=== PATIENT | male | born 1955 | race Caucasian/White ===

== ENCOUNTER 2016-12-20 10:35 | Emergency (ER) | payer MEDICARE, MEDICAID ==
[~2016-12-20] VITALS: Ht 182.9 cm; Wt 88.6 kg
[2016-12-20] MEDS ORDERED: KETOROLAC 30 MG/1 ML IM ONE (11:00)
[2016-12-20] MEDS ORDERED: DIAZEPAM 5 MG TABLET PO ONE (11:00)
[2016-12-20] MEDS ORDERED: HYDROmorphone 1 MG/ML, 1ML IM ONE (11:00)
[2016-12-20 12:01] VITALS: BP 131/80
== END 2016-12-20 12:25 | disposition home or self-care (01) ==
LOC: ED 12:19
DX: S33.5XXA Sprain of ligaments of lumbar spine, initial encounter (principal); S39.012A Strain of muscle, fascia and tendon of lower back, initial encounter; M47.896 Other spondylosis, lumbar region; M54.32 Sciatica, left side; X58.XXXA Exposure to other specified factors, initial encounter; Y93.89 Activity, other specified; Y92.89 Other specified places as the place of occurrence of the external cause; Y99.8 Other external cause status
CPT/HCPCS: 72110; 96372; 99284; J1170; J1885

== ENCOUNTER 2018-12-22 17:10 | Emergency (ER) | payer MEDICARE, MEDICAID ==
[~2018-12-22] VITALS: Ht 182.9 cm; Wt 92.9 kg
[2018-12-22] MEDS ORDERED: DICY10CA3 PO (17:51)
[2018-12-22] MEDS ORDERED: COLE500G2 MT (17:52)
[2018-12-22] MEDS ORDERED: DOXE25CA PO (17:52)
[2018-12-22] MEDS ORDERED: ALBUTEROL SULFATE 2.5 MG/3 ML NPPB ONE (18:00)
[2018-12-22] MEDS ORDERED: ALBUTEROL SULFATE 2.5 MG/3 ML ONE (18:03)
--- NOTE | 2018-12-22 18:05 | NUR ---
THIS IS A 63 YEAR OLD MALE WHO C/O OF SOB X 3 DAYS. TIMBER BUCKER PLACED, SPO2 AND CYCLE VS.
[2018-12-22 18:31] LABS: ALANINE AMINOTRANSFERASE 44 U/L (12-78); ALBUMIN 3.7 g/dL (3.4-5.0); ANION GAP 7 mmol/L (5-15); CALCIUM 8.5 mg/dL (8.5-10.1); CHLORIDE 111 mmol/L (98-107); CREATININE 1.21 mg/dL (0.7-1.3)
[2018-12-22 18:36] LABS: ALKALINE PHOSPHATASE 149 U/L (45-117); BILIRUBIN,TOTAL 0.4 mg/dL (0.2-1.0); TOTAL PROTEIN 7.7 g/dL (6.4-8.2); TROPONIN I < 0.015 ng/mL (0.000-0.045)
--- NOTE | 2018-12-22 18:53 | NUR ---
REPORT TO ALLIE CURIEL, PLAN OF CARE DISCUSSED
[2018-12-22 19:04] LABS: BASOPHILS # (AUTO) 0.06 x10^3/uL (0-0.1); BASOPHILS % (AUTO) 1 % (0-1); EOSINOPHILS # (AUTO) 0.32 x10^3/uL (0-0.4); EOSINOPHILS % (AUTO) 4 % (1-7); LYMPHOCYTES # (AUTO) 1.59 x10^3/uL (1-3.4); LYMPHOCYTES % (AUTO) 18 % (22-44); MD NO; MEAN CORPUSCULAR HEMOGLOBIN 29.8 pg (27.5-34.5); MEAN CORPUSCULAR HGB CONC 34.3 g/dL (33.2-36.2); MEAN PLATELET VOLUME 9.1 fL (7.4-10.4); MONOCYTES # (AUTO) 1.28 x10^3/uL (0.2-0.8); MONOCYTES % (AUTO) 14 % (2-9); NEUTROPHILS % (AUTO) 64 % (42-75); PLATELET COUNT 172 x10^3/uL (130-400); RED BLOOD COUNT 5.56 x10^6/uL (4.38-5.82); RED CELL DISTRIBUTION WIDTH 14.4 % (9.4-14.8)
--- NOTE | 2018-12-22 19:04 | NUR ---
RECEIVED REPORT FROM VEENA SMALLWOOD TO ASSUME PT. CARE. PT. PROVIDED WITH WATER PER REQUEST. ALL MONITORS ARE IN PLACE. VS UPDATED. SOME LABS STILL PENDING. CHELY.
--- NOTE | 2018-12-22 19:33 | NUR ---
DR. BURRIS IN TO DISCUSS POC WITH PT.
[2018-12-22] MEDS ORDERED: MAALOX/HYOSCYAMINE/LIDOCAINE 45 ML BTL ONE (19:53)
[2018-12-22] MEDS ORDERED: HYDROcodone/APAP 5/325 TABLET ONE (19:53)
[2018-12-22 19:55] VITALS: BP 136/81
[2018-12-22] MEDS ORDERED: MAALOX/HYOSCYAMINE/LIDOCAINE 45 ML BTL PO ONE (20:00)
[2018-12-22] MEDS ORDERED: HYDROcodone/APAP 5/325 TABLET PO ONE (20:00)
== END 2018-12-22 20:02 | disposition home or self-care (01) ==
LOC: ED 17:59
DX: J20.8 Acute bronchitis due to other specified organisms (principal); R07.89 Other chest pain; B97.89 Other viral agents as the cause of diseases classified elsewhere
CPT/HCPCS: 36415; 71045; 80053; 84484; 85025; 93005; 94640; 99284; J7512; J7613